=== PATIENT | female | born 1955 | race Caucasian/White ===

== ENCOUNTER → 2016-04-20 | Outpatient (REF) | payer BC, OTHER ==
[~2016-04-20] MED LIST: ADVA115A INH; ALBU17IN INH; FERR325T PO; LISI20TA3 PO; MAGN1TAB25 PO; PERC5TAB6 PO; SENN1TAB2 PO; TRAV04OPD OU; VITA-130 PO; VITA10002 PO; VITA100066 PO
[2016-04-20 10:44] LABS: MEAN CORPUSCULAR VOLUME 87.5 fl (80.0-96.0); RED CELL DISTRIBUTION WIDTH 13.7 % (11.5-14.5)
== END ==
PROVIDERS: ATTEND Internal Medicine
DX: E83.42 Hypomagnesemia (principal)

== ENCOUNTER 2018-06-19 12:50 | Emergency (ER) | payer OTHER, BC ==
[~2018-06-19] VITALS: Ht 167.6 cm; Wt 97.7 kg
[~2018-06-19 12:50] MED LIST changes: +FERR1TAB8 PO; -FERR325T PO; +PERC5TAB12 PO; -PERC5TAB6 PO; -VITA-130 PO; +VITA500T PO
[2018-06-19 17:47] VITALS: BP 121/59
--- NOTE | 2018-06-19 18:04 | REP ---
Left knee series: Six views. History: Anterolateral knee pain after fall. Rule out tibial plateau fracture. Findings: Six views of the left knee demonstrate medial compartment spurring and joint space narrowing consistent with osteoarthritis. Some vascular calcification is seen. There is patellofemoral spurring and narrowing. No tibial plateau or other fracture is seen. Impression: Medial and patellofemoral compartment osteoarthritis. No fractures seen. Electronically Signed by Cedric Segura MD 06/19/2018 06:23 P
== END 2018-06-19 17:49 | disposition home or self-care (01) ==
LOC: M ED 12:50
DX: M25.562 Pain in left knee (principal); M54.5 Low back pain; M25.551 Pain in right hip; M25.552 Pain in left hip; M17.12 Unilateral primary osteoarthritis, left knee; W10.8XXA Fall (on) (from) other stairs and steps, initial encounter; Y92.89 Other specified places as the place of occurrence of the external cause; I10 Essential (primary) hypertension; J45.909 Unspecified asthma, uncomplicated; G47.33 Obstructive sleep apnea (adult) (pediatric); M16.0 Bilateral primary osteoarthritis of hip; Z87.891 Personal history of nicotine dependence; Z88.5 Allergy status to narcotic agent; Z79.899 Other long term (current) drug therapy; Z98.84 Bariatric surgery status

== ENCOUNTER → 2018-08-23 | Outpatient (REF) | payer OTHER ==
[~2018-08-23] MED LIST changes: -MAGN1TAB25 PO; +MAGN1TAB26 PO; -SENN1TAB2 PO; +SENN1TAB40 PO
[2018-08-23 13:34] LABS: BLOOD UREA NITROGEN 35 MG/DL (7-18); CREATININE FOR GFR 0.86 MG/DL (0.55-1.30); GLOMERULAR FILTRATION RATE > 60.0 (>45)
== END ==
LOC: M LABDRAW1 11:48
PROVIDERS: ATTEND Physician Assistant
DX: M47.817 Spondylosis without myelopathy or radiculopathy, lumbosacral region (principal); M51.37 Other intervertebral disc degeneration, lumbosacral region

== ENCOUNTER → 2018-12-21 | Outpatient (CLI) | payer OTHER, MEDICARE, BC ==
[~2018-12-21] MED LIST changes: +CYAN100049 PO; +LISI20TA20 PO; -LISI20TA3 PO; -VITA10002 PO
== END ==
LOC: M LAB 10:35
PROVIDERS: ATTEND Physical Medicine & Rehabilitation
DX: M48.061 Spinal stenosis, lumbar region without neurogenic claudication (principal)

== ENCOUNTER → 2022-11-23 | Outpatient (REF) | payer MEDICARE, OTHER ==
[~2022-11-23] MED LIST changes: -LISI20TA20 PO; +LISI20TA37 PO; +SENN-53 PO; -SENN1TAB40 PO; +VITA-243 PO; -VITA500T PO
== END ==
LOC: M LAB REF 17:13
PROVIDERS: ATTEND Nurse Practitioner Family
DX: R30.0 Dysuria (principal); N39.0 Urinary tract infection, site not specified